=== PATIENT | female | born 1955 | race Caucasian/White ===

== ENCOUNTER 2018-11-29 08:55 | Emergency (ER) | payer BC ==
[2018-11-29 09:29] VITALS: BP 129/90
--- NOTE | 2018-11-29 09:57 | UC ---
Respiratory Complaint HPI - HPI Summary HPI Summary: cough x 3 weeks cough is productive with yellow sputum, getting worse over the past week , + fever, chills, body aches, nasal congestion , pnd, sore throat no sob , no chest pain - History of Current Complaint Chief Complaint: UCRespiratory Stated Complaint: CONGESTION, COUGH Time Seen by Provider: 11/29/18 09:31 Hx Obtained From: Patient Onset/Duration: Gradual Onset, Lasting Weeks - 3, Still Present, Worse Since - past one week Timing: Constant Severity Initially: Moderate Severity Currently: Moderate Pain Intensity: 7 Character: Cough: Productive - yellow Aggravating Factors: Exertion, Deep Breaths Alleviating Factors: Nothing Associated Signs And Symptoms: Positive: Fever, Chills, URI, Nasal Congestion. Negative: Dyspnea, Pleuritic Chest Pain, Wheezing, Hemoptysis, Dizziness, Calf Pain, Calf Swelling - Allergies/Home Medications Allergies/Adverse Reactions: Allergies Allergy/AdvReac Type Severity Reaction Status Date / Time Penicillins Allergy Hives Verified 11/29/18 09:18 Home Medications: Home Medications Ibuprofen TAB* [Advil TAB*] 200 mg PO ONCE PRN 11/29/18 [History Confirmed 11/29] Naproxen Sod/Diphenhydramine [Aleve Pm Caplet] 1 each PO QPM PRN 11/29/18 [ History Confirmed 11/29/18] PMH/Surg Hx/FS Hx/Imm Hx Previously Healthy: Yes - Surgical History Surgical History: Yes Surgery Procedure, Year, and Place: appy , left knee x 2 1994 and 1995 - Family History Known Family History: Negative: Diabetes - Social History Alcohol Use: Rare Substance Use Type: None Smoking Status (MU): Never Smoked Tobacco Review of Systems All Other Systems Reviewed And Are Negative: Yes Constitutional: Positive: Fever, Chills, Fatigue Skin: Positive: Negative Eyes: Positive: Negative ENT: Positive: Nasal Discharge Respiratory: Positive: Cough Cardiovascular: Positive: Negative Gastrointestinal: Positive: Negative Is Patient Immunocompromised?: No Physical Exam Triage Information Reviewed: Yes Appearance: Well-Appearing, No Pain Distress, Well-Nourished Vital Signs: Initial Vital Signs Temp 99.5 F 11/29/18 09:20 Pulse 89 11/29/18 09:20 Resp 28 11/29/18 09:20 BP 129/90 11/29/18 09:20 Pulse Ox 96 11/29/18 09:20 Vital Signs Reviewed: Yes Eye Exam: Normal Eyes: Positive: Conjunctiva Clear ENT: Positive: Normal ENT inspection, Hearing grossly normal, Pharynx normal, Nasal drainage, TMs normal Neck: Positive: Supple, Nontender, No Lymphadenopathy Respiratory: Positive: Chest non-tender, No respiratory distress, Wheezing Cardiovascular: Positive: RRR, No Murmur, Pulses Normal Skin Exam: Normal Diagnostics - Radiology No standard instances Summary of Radiographic Findings: chest xray : no pneumonia , Respiratory Course/Dx - Differential Dx/Diagnosis Provider Diagnosis: Bronchitis Discharge - Sign-Out/Discharge Documenting (check all that apply): Patient Departure All imaging exams completed and their final reports reviewed: No - Discharge Plan Condition: Stable Disposition: HOME Prescriptions: DOXYcycline CAP(*) [DOXYcycline 100MG CAP(*)] 100 mg PO BID #20 cap Patient Education Materials: Acute Bronchitis (ED) Referrals: Jayson Medel MD [Primary Care Provider] - 7 Days - Billing Disposition and Condition Condition: STABLE Disposition: Home
--- NOTE | 2018-11-30 07:53 | UC ---
- Progress Note Progress Note: Official x-ray reading already reviewed by primary UC provider. No acute cardiopulmonary disease. Course/Dx - Diagnoses Provider Diagnoses: Bronchitis Discharge - Sign-Out/Discharge Documenting (check all that apply): Post-Discharge Follow Up All imaging exams completed and their final reports reviewed: Yes - Discharge Plan Condition: Stable Disposition: HOME Prescriptions: DOXYcycline CAP(*) [DOXYcycline 100MG CAP(*)] 100 mg PO BID #20 cap Patient Education Materials: Acute Bronchitis (ED) Referrals: Jayson Medel MD [Primary Care Provider] - 7 Days - Billing Disposition and Condition Condition: STABLE Disposition: Home
== END 2018-11-29 10:07 | disposition home or self-care (01) ==
LOC: UCCORT 08:55
DX: J40 Bronchitis, not specified as acute or chronic (principal); R09.81 Nasal congestion; R09.82 Postnasal drip; Z88.0 Allergy status to penicillin
CPT/HCPCS: 71046; 99202; G0463

== ENCOUNTER 2021-05-30 06:00 | Inpatient (IN) ==
[~2021-05-30 06:00] MED LIST: Buffered Lidocaine 1% SYRIN 1 ml INTRADERM ONE; Famotidine IV 10 MG/ML 2 ml VIAL (20 mg) IV ONE; Lactated Ringers 1000 ml BAG 1,000 ML IV SCH
[2021-05-30] MEDS ORDERED: Famotidine IV 10 MG/ML 2 ml VIAL (20 mg) ONE (06:18)
[2021-05-30] MEDS ORDERED: Clindamycin 900 MG/D5W BAG 900 MG/50 ML BAG IVPB ONE (06:18)
[2021-05-30] MEDS ORDERED: Propofol 10 MG/ML 20 ML BTL ONE ×3 (07:15→09:57)
[2021-05-30] MEDS ORDERED: Dexamethasone IV 4 MG/ML VIAL 1 ml VIAL ONE ×2 (07:15→07:34)
[2021-05-30] MEDS ORDERED: fentaNYL 100 mcg/2 ml 50 MCG/ML VIAL ONE ×2 (07:15→07:34)
[2021-05-30] MEDS ORDERED: Midazolam 2 mg/2 ml VIAL 1 mg/ml 2 ml VIAL (2 mg) ONE ×2 (07:15→07:34)
[2021-05-30] MEDS ORDERED: Ondansetron 4 mg VIAL 2 MG/ML 2 ml VIAL ONE (07:15)
[2021-05-30] MEDS ORDERED: Phenylephrine IV 10 MG/ML 1 ml VIAL ONE (07:16)
[2021-05-30] MEDS ORDERED: Lidocaine 2% PF 5 ML VIAL ONE (07:16)
[2021-05-30] MEDS ORDERED: ROPIVACAINE 5 MG/ML 30 ML BTL (0.5%) ONE ×2 (07:30→07:33)
[2021-05-30] MEDS ORDERED: HYDROmorphone 1 MG/1 ML SYRINGE IV PRN (08:32)
[2021-05-30] MEDS ORDERED: Naloxone 0.4 mg VIAL 0.4 mg/ml 1 ml VIAL IV PRN (08:32)
[2021-05-30] MEDS ORDERED: Metoclopramide 5 MG/ML VIAL (10 mg) IV PRN (08:32)
[2021-05-30] MEDS ORDERED: HYDROcodone/ACETAMIN 5/325 mg TAB PO PRN (08:32)
[2021-05-30] MEDS ORDERED: Ondansetron 4 mg VIAL 2 MG/ML 2 ml VIAL IV PRN ×2 (08:32→08:46)
[2021-05-30] MEDS ORDERED: diPHENhydraMINE IV 50 MG/ML 1 ml VIAL (BENADRYL) IV PRN ×2 (08:32→08:46)
[2021-05-30] MEDS ORDERED: Lactulose 30 ml UDC PO PRN (08:46)
[2021-05-30] MEDS ORDERED: diPHENhydraMINE 25 mg TAB PO PRN (08:46)
[2021-05-30] MEDS ORDERED: Ondansetron ODT 4 mg TAB 4 MG TAB PO PRN (08:46)
[2021-05-30] MEDS ORDERED: Magnesium Hydroxide LIQ 30 ML UDC PO PRN (08:46)
[2021-05-30] MEDS ORDERED: Morphine 2 MG/ML SYRINGE IV PRN (08:46)
[2021-05-30] MEDS ORDERED: Lactated Ringers 1000 ml BAG 1,000 ML IV SCH (09:00)
[2021-05-30] MEDS ORDERED: HYDROcodone/ACETAMIN 5/325 mg TAB ONE (11:12)
[2021-05-30] MEDS ORDERED: Dextrose 50% Syringe 50 ml 25 GM/50 ML SYRINGE IV PUSH PRN (11:40)
[2021-05-30] MEDS: Vitamin THERAPEUTIC TAB PO SCH (12:21)
[2021-05-30] MEDS: Aspirin EC 81 mg TAB.EC (enteric coated) PO SCH (12:21)
[2021-05-30] MEDS: Magnesium Hydroxide LIQ 30 ML UDC PO SCH ×2 (12:21→21:19)
[2021-05-30] MEDS: Clindamycin 600 MG/D5W BAG 600 MG/50 ML BAG IV SCH (16:42)
[2021-05-31] MEDS: Clindamycin 600 MG/D5W BAG 600 MG/50 ML BAG IV SCH ×2 (00:27→08:12)
[2021-05-31 06:36] LABS: Hematocrit 37 % (35-47); Hemoglobin 12.4 g/dL (12.0-16.0); Mean Platelet Volume 9.4 fL (7.4-10.4); Platelet Count 199 10^3/uL (150-450)
[2021-05-31 07:00] LABS: Calcium 9.4 mg/dL (8.6-10.3); EGFR African American 101.6 (>60); Potassium 4.6 mmol/L (3.5-5.0)
[2021-05-31] MEDS: Magnesium Hydroxide LIQ 30 ML UDC PO SCH (08:12)
[2021-05-31] MEDS: Aspirin EC 81 mg TAB.EC (enteric coated) PO SCH (08:12)
[2021-05-31] MEDS: Vitamin THERAPEUTIC TAB PO SCH (08:12)
[2021-05-31] MEDS ORDERED: Flu vaccine *QUAD* 2021-22* 0.5 ML SYRINGE IM ONE (09:00)
[2021-05-31 11:26] VITALS: BP 141/75
== END 2021-05-31 13:40 | disposition home or self-care (01) | DRG 470 ==
LOC: AA 06:00 → SSU 12:11
PROVIDERS: ADMIT Orthopaedic Surgery Adult Reconstructive Orthopaedic Surgery; ATTEND Orthopaedic Surgery Adult Reconstructive Orthopaedic Surgery